=== PATIENT | male | born 1990 | race Caucasian/White ===

== ENCOUNTER 2023-09-08 11:30 | Emergency (ER) | payer SELFPAY ==
--- NOTE | 2023-09-08 12:34 | RAD REPORT ---
EXAM DESCRIPTION: CT - Head Brain Wo Cont - 09/08/2023 12:23 pm CLINICAL HISTORY: WEAKNESS COMPARISON: No comparisons TECHNIQUE: All CT scans are performed using dose optimization technique as appropriate and may inclu de automated exposure control or mA/KV adjustment according to patient size. FINDINGS: No intracranial hemorrhage, hydrocephalus or extra-axial fluid collection.No areas of brai n edema or evidence of midline shift. The paranasal sinuses and mastoids are clear. The calvarium is intact. IMPRESSION: No acute intracranial abnormality.
[2023-09-08 14:30] LABS: Hematocrit 54.9 % (39.6-49.0); MPV 8.7 fL (7.6-11.3)
[2023-09-08 14:34] LABS: Absolute Lymphocytes (CBC) 2.8 K/uL (0.7-4.9); Lymphocytes % 30.4 % (15.3-44.8); MCV 89.7 fL (80-100); Platelets 184 thou/uL (152-406); RBC Red Blood Cell Count 6.12 M/uL (4.33-5.43)
[2023-09-08 14:58] LABS: Albumin 3.7 g/dL (3.4-5.0); Bilirubin Total 0.6 mg/dL (0.2-1.0); Potassium 3.4 mEq/L (3.5-5.1); Protein, Total 7.3 g/dL (6.4-8.2); Thyroid Stimulating Hormone 1.09 uIU/mL (0.358-3.740)
[2023-09-08 14:58] LABS: SARS-CoV-2 Antigen Rapid Res Negative (Negative)
[2023-09-08 15:11] LABS: Barbiturates NEGATIVE (NEGATIVE); Benzodiazepines NEGATIVE (NEGATIVE); Cocaine NEGATIVE (NEGATIVE); METHAMPHETAM NEGATIVE (NEGATIVE); Opiates NEGATIVE (NEGATIVE); Phencyclidine NEGATIVE (NEGATIVE); THC Cannibis NEGATIVE (NEGATIVE)
[2023-09-08 15:12] LABS: Methadone ND (NEGATIVE); Specific Gravity 1.027 (1.005-1.030); Urine Bacteria None Seen /HPF (<20); Urine Bilirubin NEGATIVE (Negative); Urine Blood Negative (Negative); Urine Clarity Turbid (Clear); Urine Color Yellow (Yellow); Urine Glucose 1+ (Negative); Urine Mucus 1+ /HPF (None Seen); Urine Protein TRACE (Negative); Urine RBC <5 /HPF (None Seen); Urine Urobilinogen Normal (Normal)
--- NOTE | 2023-09-08 15:38 | RAD REPORT ---
EXAM DESCRIPTION: CT - C Spine Wo Con - 09/08/2023 3:30 pm CLINICAL HISTORY: WEAKNESS COMPARISON: Thoracic Spine W/o Cont dated 09/08/2023 TECHNIQUE: CT Scan was obtained of the cervical spine without contrast. Reformats were provided in t he sagittal and coronal plane. FINDINGS: No acute fracture of the cervical spine. No traumatic malalignment. No prevertebral edema. No significant focal degenerative changes. No suspicious thyroid nodules or lymphadenopathy. The jalyn g apices are clear. IMPRESSION: No fracture or traumatic malalignment of the cervical spine.
--- NOTE | 2023-09-08 15:41 | RAD REPORT ---
EXAM DESCRIPTION: CT - Thoracic Spine W/o Cont - 09/08/2023 3:30 pm CLINICAL HISTORY: weakness COMPARISON: C Spine Wo Con dated 09/08/2023; Spine Lumbar Wo Con dated 09/08/2023 TECHNIQUE: Axial CT imaging through the thoracic spine was performed with coronal and sagittal re-fo rmatted images. All CT scans are performed using dose optimization technique as appropriate and may include automated exposure control or mA/KV adjustment according to patient size. FINDINGS: Vertebral body heights and disc spaces are maintained. A compression fracture is not prese nt. No significant disc space narrowing. Thoracic spine alignment is within normal limits. No paraspinal masses or hematoma. Intervertebral disc detail is inherently limited on CT without gross findings of canal compromise. IMPRESSION: No fracture or malalignment of the thoracic spine.
--- NOTE | 2023-09-08 15:44 | RAD REPORT ---
EXAM DESCRIPTION: CT - Spine Lumbar Wo Con - 09/08/2023 3:30 pm CLINICAL HISTORY: WEAKNESS COMPARISON: No comparisons TECHNIQUE: Axial noncontrast CT imaging of the lumbar spine was performed with coronal and sagittal re-formatted images. All CT scans are performed using dose optimization technique as appropriate and may include automated exposure control or mA/KV adjustment according to patient size. FINDINGS: No acute lumbar spine fracture seen. No aggressive marrow pattern or malalignment. Paraspinal tissues are normal in thickness. No paraspinal abscess or hematoma seen. Intervertebral disc disease assessment is inherently limited by CT. Within these limitations, no high -grade canal stenosis suspected. IMPRESSION: No fracture or malalignment of the lumbar spine. Consider MRI follow-up for assessment of disc disease if clinically desired.
[2023-09-08] MEDS ORDERED: NA CHLORIDE 0.9% 1,000 ML ONE (15:52)
--- NOTE | 2023-09-08 19:08 | EDPHYS ---
Physician Documentation [facility] Name: Kody Steve Age: 33 yrs Sex: Male : 1990 Arrival Date: 09/08/2023 Time: 11:30 Bed 10 Private MD: ED Physician Lc Shaw HPI: 09/08 18:10 This 33 yrs old Male presents to ER via Ambulatory with complaints of leg weakness. sb4 18:17 Onset: The symptoms/episode began/occurred this morning. patient states he woke up this sb4 morning and felt like both of his legs were weak. he reports the weakness is mainly in his upper thighs. he is able to move and walk but feels his strength is decreased. he denies any back pain, urinary symptoms, fever, nausea, vomiting, recent illness, changes in medication. no other neurologic deficits stated. Historical: - Allergies: 12:04 No Known Allergies; hb - Home Meds: 12:04 Adderall XR Oral [Active]; Testosterone IM [Active]; hb - PMHx: 12:04 None; hb - PSHx: 12:04 None; hb - Immunization history:: Adult Immunizations up to date. - Social history:: Smoking status: Patient denies any tobacco usage or history of. ROS: 18:17 Constitutional: Negative for fever, chills, and weight loss, sb4 18:17 Neuro: Positive for weakness, of the right leg and left leg, 18:17 All other systems are negative, Exam: 18:20 Neuro: Orientation: is normal, to person, place, time \T\ situation. Mentation: is sb4 normal, appropriate for stated age, no acute changes, Memory: is normal, appropriate for stated age, Cranial nerves: CN II- XII are normal as tested, Cerebellar function: is grossly normal, is grossly normal based on the patient's age, Motor: is normal, Sensation: is normal, no obvious gross deficits, Gait: is steady, 09/09 10:42 Constitutional: This is a well developed, well nourished patient who is awake, alert, sb4 and in no acute distress. Head/Face: Normocephalic, atraumatic. Eyes: Extra-ocular motions intact. Periorbital areas with no swelling, redness, or edema. ENT: Mucous membranes moist. Cardiovascular: Regular rate and rhythm with a normal S1 and S2. Respiratory: Lungs have equal breath sounds bilaterally, clear to auscultation and percussion. No rales, rhonchi or wheezes noted. No increased work of breathing, no retractions or nasal flaring. Abdomen/GI: Soft, non-tender, no distension. Neuro: Motor: strength is 4/5 in the right leg and left leg, Vital Signs: 09/08 12:01 BP 143 / 88; Pulse 91; Resp 18; Temp 98.4; Pulse Ox 98% on R/A; hb 16:00 BP 134 / 79; Pulse 87; Resp 16; Pulse Ox 99% on R/A; Pain 0/10; iw 16:00 Pain Scale: Adult iw MDM: 12:06 Patient medically screened. sb4 09/09 10:42 Differential diagnosis: myopathy, rhabdomyolysis, spinal cord lesion, viral illness, sb4 drug overdose. Data reviewed: vital signs, nurses notes, lab test result(s), radiologic studies, I have discussed the patient's presentation/case with the attending Emergency Department Physician; and as a result, I will discharge patient. Consideration of Admission/Observation Escalation of care including admission/observation considered. Counseling: I had a detailed discussion with the patient and/or guardian regarding the historical points, exam findings, and any diagnostic results supporting the discharge/admit diagnosis, lab results, radiology results, the need for further work-up and treatment in the hospital. Refusal of service: The patient/guardian displays adequate decision making capability and despite a detailed discussion of alternatives, benefits, risks, and consequences refuses: Admission to the hospital for further work-up and treatment. Special discussion: I recommended admission for patient for IV fluids and to trend CPK as I cannot find a reason for his leg weakness. He is ambulating appropriately, acting appropriately. He wishes to go home and will follow up with his PCP next week. I provided him with a copy of all of his results. Strict return precautions given. he understands. 09/08 12:08 Order name: CBC with Diff; Complete Time: 14:41 sb4 09/08 12:08 Order name: CMP; Complete Time: 15:02 sb4 09/08 12:08 Order name: Lipase; Complete Time: 15:02 sb4 09/08 12:08 Order name: CPK; Complete Time: 15:02 sb4 09/08 12:08 Order name: UAM; Complete Time: 15:20 sb4 09/08 12:08 Order name: SARS RAPID; Complete Time: 15:02 sb4 09/08 12:08 Order name: Flu; Complete Time: 15:20 sb4 09/08 12:08 Order name: UDS; Complete Time: 15:20 sb4 09/08 12:08 Order name: TSH; Complete Time: 15:02 sb4 09/08 17:35 Order name: CK; Complete Time: 18:52 sb4 09/08 12:08 Order name: Head Brain Wo Cont CT; Complete Time: 12:36 sb4 09/08 15:08 Order name: CT C Spine; Complete Time: 15:44 sb4 09/08 15:08 Order name: Thoracic Spine WO Cont CT; Complete Time: 15:44 sb4 09/08 15:08 Order name: Spine Lumbar Wo Con CT; Complete Time: 15:44 sb4 09/08 12:08 Order name: IV Saline Lock; Complete Time: 14:26 sb4 09/08 12:08 Order name: Labs collected and sent; Complete Time: 14:26 sb4 09/08 16:14 Order name: Misc. Order: ambulate; Complete Time: 16:34 sb4 Administered Medications: 09/08 15:47 Drug: NS 0.9% IV 1000 ml IV at 1 bolus Per protocol; 1000 mL bolus Route: IV; Rate: 1 iw bolus; Site: right antecubital; Disposition Summary: 09/08/23 19:07 Discharge Ordered Notes: Location: Home sb4 Problem: new sb4 Symptoms: are unchanged sb4 Condition: Stable sb4 Diagnosis - myopathy of bilateral lower extremities sb4 Followup: sb4 - With: Emergency Department - When: As needed - Reason: Trouble breathing, Worsening of condition Discharge Instructions: - Discharge Summary Sheet sb4 - Myopathy sb4 Forms: - Medication Reconciliation Form sb4 - Thank You Letter sb4 - Antibiotic Education sb4 - Prescription Opioid Use sb4 - Patient Portal Instructions sb4 - Leadership Thank You Letter sb4 Addendum: 09/10/2023 10:52 I was immediately available for consultation during this patient's visit. I did not e c2 personally see the patient or guide the patient's care. . Signatures: Dispatcher [employer] Bree Mitchell, Loraine Anglin RN, RN RN hb Brown, Sophia, ARMIN FUNEZ sb4 Lc Shaw MD MD ec2
--- NOTE | 2023-09-08 19:08 | ER ---
Nurse's Notes [facility] Name: Kody Steve Age: 33 yrs Sex: Male : 1990 Arrival Date: 09/08/2023 Time: 11:30 Bed 10 Private MD: Diagnosis: myopathy of bilateral lower extremities Presentation: 09/08 12:01 Chief complaint: Generalized weakness upon waking today, fatigue x 2-3 days. Pt reports hb difficulty getting out of bed today, both thighs feel "super weak and almost numb." Denies chest pain/N/V/D/fever. Coronavirus screen: At this time, the client does not indicate any symptoms associated with coronavirus-19. Ebola Screen: No symptoms or risks identified at this time. Risk Assessment: Do you want to hurt yourself or someone else? Patient reports no desire to harm self or others. Onset of symptoms was September 08, 2023. 12:01 Method Of Arrival: Ambulatory hb 12:01 Acuity: LOKI 3 hb 16:00 Initial Sepsis Screen: Does the patient meet any 2 criteria? No. Patient's initial iw sepsis screen is negative. Does the patient have a suspected source of infection? No. Patient's initial sepsis screen is negative. Historical: - Allergies: 12:04 No Known Allergies; hb - Home Meds: 12:04 Adderall XR Oral [Active]; Testosterone IM [Active]; hb - PMHx: 12:04 None; hb - PSHx: 12:04 None; hb - Immunization history:: Adult Immunizations up to date. - Social history:: Smoking status: Patient denies any tobacco usage or history of. Screenin:26 [facility] ED Fall Risk Assessment (Adult) Score/Fall Risk Level 0 - 2 = Low Risk. Abuse iw screen: Denies threats or abuse. Denies injuries from another. Nutritional screening: No deficits noted. Tuberculosis screening: No symptoms or risk factors identified. Assessment: 12:01 Reassessment: Melissa DIETRICH in triage to assess pt. hb 14:41 General: Appears uncomfortable, Behavior is calm, cooperative. Pain: Denies pain. iw Neuro: Level of Consciousness is awake, alert, obeys commands, Oriented to person, place, time, situation, Weakness in bilateral leg(s). Cardiovascular: Patient's skin is warm and dry. Respiratory: Respiratory effort is even, unlabored, Respiratory pattern is regular, symmetrical. GI: Abdomen is flat, non-distended. Derm: Skin is intact, is healthy with good turgor. Musculoskeletal: Range of motion: intact in all extremities. 16:05 Reassessment: Patient appears in no apparent distress at this time. Patient and/or iw family updated on plan of care and expected duration. Pain level reassessed. Patient is alert, oriented x 3, equal unlabored respirations, skin warm/dry/pink. 17:30 Reassessment: Patient appears in no apparent distress at this time. iw 18:59 Reassessment: Patient appears in no apparent distress at this time. Patient and/or iw family updated on plan of care and expected duration. Pain level reassessed. Patient is alert, oriented x 3, equal unlabored respirations, skin warm/dry/pink. Vital Signs: 12:01 BP 143 / 88; Pulse 91; Resp 18; Temp 98.4; Pulse Ox 98% on R/A; hb 16:00 BP 134 / 79; Pulse 87; Resp 16; Pulse Ox 99% on R/A; Pain 0/10; iw 16:00 Pain Scale: Adult iw ED Course: 11:33 Patient arrived in ED. mg5 11:42 Maddi Peterson PA-C is PHCP. sb4 11:42 Lc Shaw MD is Attending Physician. sb4 12:04 Triage completed. hb 12:04 Arm band placed on. hb 12:25 Head Brain Wo Cont CT In Process Unspecified. EDMS 14:00 Bree Vaughn, RN is Primary Nurse. iw 14:23 Initial lab(s) drawn, by me, sent to lab. Inserted saline lock: 20 gauge in right iw antecubital area, using aseptic technique. Blood collected. 14:41 SARS RAPID Sent. iw 14:41 Flu Sent. iw 14:42 Patient has correct armband on for positive identification. iw 14:46 UDS Sent. iw 15:32 CT C Spine In Process Unspecified. EDMS 15:32 Thoracic Spine WO Cont CT In Process Unspecified. EDMS 15:32 Spine Lumbar Wo Con CT In Process Unspecified. EDMS 18:26 CK Sent. iw 19:14 No provider procedures requiring assistance completed. IV discontinued, intact, iw bleeding controlled, No redness/swelling at site. Pressure dressing applied. Administered Medications: 15:47 Drug: NS 0.9% IV 1000 ml IV at 1 bolus Per protocol; 1000 mL bolus Route: IV; Rate: 1 iw bolus; Site: right antecubital; Medication: 14:26 VIS not applicable for this client. iw Outcome: 19:07 Discharge ordered by MD. talbot 19:14 Discharged to home ambulatory, with family, iw 19:14 Condition: good 19:14 Discharge instructions given to patient, Instructed on discharge instructions, follow up and referral plans. Demonstrated understanding of instructions, follow-up care, 19:15 Patient left the ED. iw Signatures: Dispatcher [employer] EDBree Radford RN RN iw Loraine Casanova RN RN Maddi Pink, PA-C PA-C sb4 Reema Baxter mg5 Corrections: (The following items were deleted from the chart) 19:00 17:00 BP 134 / 79; Pulse 87bpm; Resp 16bpm; Pulse Ox 99% RA; Pain 0/10, Adult; iw iw
[2023-09-08 19:36] VITALS: TEMP 98.4
[2023-09-08 19:57] VITALS: BP 134/79; O2SAT 99
== END 2023-09-08 19:15 | disposition home or self-care (01) ==
LOC: ER 11:30
DX: G72.89 Other specified myopathies (principal); Z11.52 Encounter for screening for COVID-19
CPT/HCPCS: 36415; 70450; 72125; 72128; 72131; 80053; 80307; 81001; 82550; 83690; 84443; 85025; 87804; 87811; 99284; J7030

== ENCOUNTER 2025-08-19 12:19 | Emergency (ER) | payer OTHER, SELFPAY ==
[2025-08-19] MEDS ORDERED: DIPHENHYDRAMINE 50 MG/ML VIAL ONE (12:40)
[2025-08-19] MEDS ORDERED: METHYLPREDNISOLONE 125 MG INJ ONE (12:40)
[2025-08-19] MEDS ORDERED: NA CHLORIDE 0.9% 1,000 ML ONE (12:40)
[2025-08-19] MEDS ORDERED: FAMOTIDINE 20 MG/2 ML VIAL IV ONE (12:40)
--- NOTE | 2025-08-19 13:53 | RAD REPORT ---
EXAMINATION: Shoulder Left 2+ Views CLINICAL INDICATION: Male, 35 years old. PAIN COMPARISON: No prior exam. FINDINGS: No acute fracture. No malalignment/dislocation. No significant focal degenerative change. Other: n/a IMPRESSION: No acute osseous abnormality.
--- NOTE | 2025-08-19 14:31 | EDPHYS ---
Physician Documentation [facility] Name: Kody Steve Age: 35 yrs Sex: Male : 1990 Arrival Date: 08/19/2025 Time: 12:19 Bed 15 Private MD: ED Physician Jorge Robledo HPI: 08/19 20:14 This 35 yrs old Male presents to ER via Ambulatory with complaints of Bee Sting. ms3 20:14 35-year-old male with no past medical history presents to the emergency department ms3 after being stung by bees. Patient was working on an excavator and went to move a log when bees came out and began stinging him. Patient ran from the bees and tripped and fell to injuring his left shoulder. Patient states the left shoulder pain is 6/10 and constant. Historical: - Allergies: 12:26 No Known Allergies; bp - Immunization history:: Adult Immunizations up to date. - Infectious Disease History:: Denies. - Social history:: Smoking status: unknown. ROS: 20:14 Constitutional: Negative for fever, and chills. Cardiovascular: Negative for chest ms3 pain, and palpitations. Respiratory: Negative for shortness of breath, cough, wheezing, and pleuritic chest pain, Abdomen/GI: Negative for abdominal pain, nausea, vomiting, diarrhea, and constipation, 20:14 Skin: Positive for diaphoresis, Erythema on back, Exam: 20:14 Constitutional: This is a well developed, well nourished patient who is awake, alert, ms3 and in no acute distress. Chest/axilla: Normal chest wall appearance and motion. Nontender with no deformity. 20:14 Respiratory: Lungs have equal breath sounds bilaterally, clear to auscultation and percussion. No rales, rhonchi or wheezes noted. No increased work of breathing, no retractions or nasal flaring. Abdomen/GI: Soft, non-tender, with normal bowel sounds. No distension or tympany. No guarding or rebound. No evidence of tenderness throughout. 20:14 Cardiovascular: Rate: tachycardic, Rhythm: regular, Pulses: no pulse deficits are appreciated, Heart sounds: normal, normal S1and S2, 20:14 Skin: Appearance: Color: erythematous, Moisture: diaphoretic, diaphoresis is noted, Vital Signs: 12:23 BP 126 / 94; Pulse 121; Resp 16; Temp 98; Pulse Ox 99% ; bp 12:50 BP 125 / 88; Pulse 97; Resp 16; Pulse Ox 97% ; bp 13:43 BP 127 / 84; Pulse 85; Resp 15; Pulse Ox 100% ; bp MDM: 12:48 Medical Screening Exam initiated ms3 20:14 Differential diagnosis: Bee sting versus clavicle fracture versus AC separation. Data ms3 reviewed: vital signs, nurses notes, radiologic studies, and as a result, I will discharge patient. I considered the following discharge prescriptions or medication management in the emergency department Medications were administered in the Emergency Department. See MAR. Independent interpretation of the following test(s) in the Emergency Department X-Ray: My interpretation is Left shoulder x-ray image reviewed by me revealed AC separation. Counseling: I had a detailed discussion with the patient and/or guardian regarding the historical points, exam findings, and any diagnostic results supporting the discharge/admit diagnosis, radiology results, the need for outpatient follow up, to return to the emergency department if symptoms worsen or persist or if there are any questions or concerns that arise at home. Special discussion: I discussed with the patient/guardian in detail that at this point there is no indication for admission to the hospital. It is understood, however, that if the symptoms persist or worsen the patient needs to return immediately for re-evaluation. ED course: Discussed AC separation with patient. On reevaluation patient is improved, alert and oriented x 4, in no apparent distress, nontoxic-appearing, speaking full sentences. Patient to follow-up with primary care physician and Dr. Noguera in 2 to 3 days. All questions were answered. Return precautions were discussed include worsening symptoms, or any other concerns. 08/19 12:40 Order name: Shoulder Left (2 View) XRAY; Complete Time: 20:18 ms3 08/19 13:53 Order name: Sling; Complete Time: 14:09 ms3 Administered Medications: 12:50 Drug: Famotidine IVP 20 mg IVP once; dilute with 10 mL 0.9% NaCl; give over 2 minutes bp Route: IVP; Site: right antecubital; 14:00 Follow up: Response: Marked relief of symptoms bp 12:50 Drug: MethylPrednisoLONE IVP 125 mg IVP once Route: IVP; Site: right antecubital; bp 14:00 Follow up: Response: Marked relief of symptoms bp 12:50 Drug: diphenhydrAMINE IVP 50 mg IVP once Route: IVP; Site: right antecubital; bp 14:00 Follow up: Response: Marked relief of symptoms bp Disposition Summary: 08/19/25 14:30 Discharge Ordered Notes: Location: Home ms3 Condition: Stable ms3 Diagnosis - AC seperation left shoulder ms3 - Bee sting ms3 - Allergic reaction to bee stings ms3 Followup: ms3 - With: Manjit Haas DO - When: 2 - 3 days - Reason: Recheck today's complaints Followup: ms3 - With: Crescencio Noguera MD - When: 2 - 3 days - Reason: Recheck today's complaints Discharge Instructions: - Discharge Summary Sheet ms3 - Bee, Wasp, or Hornet Sting, Adult ms3 - Acromioclavicular Separation ms3 Forms: - Medication Reconciliation Form ms3 - Antibiotic Education ms3 - Prescription Opioid Use ms3 - Patient Portal Instructions ms3 - Leadership Thank You Letter ms3 Prescriptions: - Prednisone 20 mg Oral Tablet - take 2 tablets ORAL route once daily for 5 days; 10 tablet; Refills: 0, Product ms3 Selection Permitted Signatures: Dispatcher [employer] Bran Mark, RN RN Jorge Montalvo DO DO ms3
--- NOTE | 2025-08-19 14:31 | ER ---
Nurse's Notes [facility] Name: Kody Steve Age: 35 yrs Sex: Male : 1990 Arrival Date: 08/19/2025 Time: 12:19 Bed 15 Private MD: Diagnosis: AC seperation left shoulder;Bee sting;Allergic reaction to bee stings Presentation: 08/19 12:23 Chief complaint: Patient states: STUNG BY MX BEES, FALL ON LEFT SHOULDER. Coronavirus bp screen: At this time, the client does not indicate any symptoms associated with coronavirus-19. Ebola Screen: No symptoms or risks identified at this time. Onset: The symptoms/episode began/occurred suddenly. Anaphylaxis evaluation, no signs or symptoms of anaphylaxis were noted. Initial Sepsis Screen: Does the patient meet any 2 criteria? HR > 90 bpm. No. Patient's initial sepsis screen is negative. Does the patient have a suspected source of infection? No. Patient's initial sepsis screen is negative. Risk Assessment: Do you want to hurt yourself or someone else? Patient reports no desire to harm self or others. Onset of symptoms was August 19, 2025 at 12:00. 12:23 Method Of Arrival: Ambulatory bp 12:23 Acuity: LOKI 3 bp Triage Assessment: 12:26 General: Appears distressed, uncomfortable, Behavior is cooperative, appropriate for bp age, anxious. Pain: Complains of pain in anterior aspect of left shoulder. EENT: No deficits noted. Neuro: No deficits noted. Cardiovascular: Rhythm is sinus tachycardia. Respiratory: No deficits noted. GI: No signs and/or symptoms were reported involving the gastrointestinal system. : No signs and/or symptoms were reported regarding the genitourinary system. Derm: No deficits noted. Musculoskeletal: No deficits noted. Historical: - Allergies: 12:26 No Known Allergies; bp - Immunization history:: Adult Immunizations up to date. - Infectious Disease History:: Denies. - Social history:: Smoking status: unknown. Screenin:27 [facility] ED Fall Risk Assessment (Adult) History of falling in the last 3 months, bp including since admission No falls in past 3 months (0 pts) Confusion or Disorientation No (0 pts) Intoxicated or Sedated No (0 pts) Impaired Gait No (0 pts) Mobility Assist Device Used No (0 pt) Altered Elimination No (0 pt) Score/Fall Risk Level 0 - 2 = Low Risk Oriented to surroundings. Abuse screen: Denies threats or abuse. Denies injuries from another. Nutritional screening: No deficits noted. Tuberculosis screening: No symptoms or risk factors identified. Assessment: 12:27 General: SEE TRIAGE NOTE. Respiratory: Airway is patent Respiratory effort is even, bp unlabored, Breath sounds are clear bilaterally. 13:43 Reassessment: Patient appears in no apparent distress at this time. Patient is alert, bp oriented x 3, equal unlabored respirations, skin warm/dry/pink. Patient states symptoms have improved. Vital Signs: 12:23 BP 126 / 94; Pulse 121; Resp 16; Temp 98; Pulse Ox 99% ; bp 12:50 BP 125 / 88; Pulse 97; Resp 16; Pulse Ox 97% ; bp 13:43 BP 127 / 84; Pulse 85; Resp 15; Pulse Ox 100% ; bp ED Course: 12:23 Patient arrived in ED. bp 12:24 Triage completed. bp 12:24 Jorge Robledo DO is Attending Physician. ms3 12:26 Arm band placed on. bp 12:27 Patient has correct armband on for positive identification. bp 12:50 Bran Izquierdo, JANNET is Primary Nurse. bp 12:50 Inserted saline lock: 18 gauge in right antecubital area, using aseptic technique. bp 13:40 Shoulder Left (2 View) XRAY In Process Unspecified. EDMS 14:09 Sling applied to left arm. bp 14:29 Manjit Haas DO is Referral Physician. ms3 14:29 Crescencio Segura MD is Referral Physician. ms3 14:42 No provider procedures requiring assistance completed. IV discontinued, intact, bp bleeding controlled, No redness/swelling at site. Pressure dressing applied. Administered Medications: 12:50 Drug: Famotidine IVP 20 mg IVP once; dilute with 10 mL 0.9% NaCl; give over 2 minutes bp Route: IVP; Site: right antecubital; 14:00 Follow up: Response: Marked relief of symptoms bp 12:50 Drug: MethylPrednisoLONE IVP 125 mg IVP once Route: IVP; Site: right antecubital; bp 14:00 Follow up: Response: Marked relief of symptoms bp 12:50 Drug: diphenhydrAMINE IVP 50 mg IVP once Route: IVP; Site: right antecubital; bp 14:00 Follow up: Response: Marked relief of symptoms bp Medication: 12:27 VIS not applicable for this client. bp Outcome: 14:30 Discharge ordered by . ms3 14:42 Discharged to home ambulatory, with family, bp 14:42 Condition: stable 14:42 Discharge instructions given to patient, Instructed on discharge instructions, follow up and referral plans. medication usage, Demonstrated understanding of instructions, follow-up care, medications, splint care, Prescriptions given X 1, 14:42 Patient left the ED. bp Signatures: Dispatcher [employer] EDMS Bran Izquierdo, RN RN bp Jorge Robledo DO DO ms3
[2025-08-19 16:15] VITALS: BP 126/94; TEMP 98; O2SAT 99
== END 2025-08-19 14:42 | disposition home or self-care (01) ==
LOC: ER 12:19
DX: S43.102A Unspecified dislocation of left acromioclavicular joint, initial encounter (principal); T63.441A Toxic effect of venom of bees, accidental (unintentional), initial encounter; W01.0XXA Fall on same level from slipping, tripping and stumbling without subsequent striking against object, initial encounter
CPT/HCPCS: 73030; 96375; 96374; 99284; J1200; J2919; J7030